=== PATIENT | male | born 1950 | race Caucasian/White ===

== ENCOUNTER 2018-08-31 15:15 | Inpatient (IN) ==
[2018-08-31] MEDS ORDERED: ACETAMINOPHEN 325 MG TABLET PO PRN (15:19)
[2018-08-31] MEDS ORDERED: ONDANSETRON 4 MG/2 ML VIAL IV PRN (15:19)
[2018-08-31] MEDS ORDERED: DOCUSATE SODIUM 100 MG CAPSULE PO PRN (15:19)
[2018-08-31] MEDS ORDERED: methylPREDNISolone SOD SUC 125 MG/2 ML VIAL IV ONE (16:00)
[2018-08-31] MEDS: cefTRIAXone 1,000 MG in SYRINGE 1 EACH IV SCH (17:47)
[2018-08-31] MEDS: SODIUM CHLORIDE 0.9% 1,000 ML IV SCH (17:47)
[2018-08-31 18:50] LABS: Basophils # 0.1 10*3/uL (0.0-0.2); Basophils % 0.6 % (0.0-0.8); Eosinophils # 0.3 10*3/uL (0.0-0.87); Eosinophils % 3.8 % (0.00-10.9); Hemoglobin 18.2 GM/DL (14.0-18.0); Immature Granulocytes % 0.4 %; Immature Granulocytes Absolute 0.03 #; Lymphocytes # 0.4 10*3/uL (1.4-4.0); Mean Corpuscular HGB Conc 33.1 GM/DL (32-36); Mean Corpuscular Hemoglobin 32 PG (27-34); Mean Corpuscular Volume 95.8 FL (87-102); Mean Platelet Volume 10.4 FL (9.6-12.0); Monocytes # 0.3 10*3/uL (0.11-0.8); Monocytes % 3.5 % (1.7-12.7); Neutrophils # 7.2 10*3/uL (1.4-7.4); Neutrophils % 86.7 % (38.7-73.9); Platelet Count 306 T/CUMM (130-400); Red Blood Count 5.74 MC/CUMM (3.8-5.5); White Blood Count 8.2 T/CUMM (4-12)
[2018-08-31 18:59] LABS: Albumin 3.5 G/DL (3.4-5.0); Bilirubin,Total 1.1 MG/DL (0.2-1.0); Calcium 9.1 MG/DL (8.5-10.1); Osmolality,Calculated 265.2 MOS/KG (273-304); Potassium 4.8 MMOL/L (3.5-5.1); Total Protein 7.9 G/DL (6.4-8.3)
[2018-08-31] MEDS: ALBUTEROL/IPRATROPIUM 3 ML NEB RESP TX SCH ×2 (20:10→22:50)
[2018-08-31] MEDS ORDERED: ENOXAPARIN 30 MG/0.3 ML SYRINGE SUBCUT SCH (21:00)
[2018-08-31] MEDS: TEMAZEPAM 15 MG CAPSULE PO SCH (21:09)
[2018-08-31] MEDS: guaiFENesin/DM ER 600-30 MG TABLET PO SCH (21:09)
[2018-09-01] MEDS: methylPREDNISolone SOD SUC 125 MG/2 ML VIAL IV SCH ×2 (00:17→09:30)
[2018-09-01] MEDS: ALBUTEROL/IPRATROPIUM 3 ML NEB RESP TX SCH ×6 (03:00→23:00)
[2018-09-01] MEDS: PANTOPRAZOLE 40 MG TABLET PO SCH (09:13)
[2018-09-01] MEDS: MULTIVITAMIN (CENTRUM) TABLET PO SCH (09:13)
[2018-09-01] MEDS: ASPIRIN EC 81 MG TABLET PO SCH (09:13)
[2018-09-01] MEDS: guaiFENesin/DM ER 600-30 MG TABLET PO SCH ×2 (09:13→21:38)
[2018-09-01] MEDS: methylPREDNISolone SOD SUC 40 MG/1 ML VIAL IV SCH ×2 (09:16→21:36)
[2018-09-01] MEDS: SODIUM CHLORIDE 0.9% 1,000 ML IV SCH (13:55)
[2018-09-01] MEDS: cefTRIAXone 1,000 MG in SYRINGE 1 EACH IV SCH (15:32)
[2018-09-01] MEDS: ENOXAPARIN 40 MG/0.4 ML SYRINGE SUBCUT SCH (21:37)
[2018-09-01] MEDS: TEMAZEPAM 15 MG CAPSULE PO SCH (21:38)
[2018-09-02] MEDS: ALBUTEROL/IPRATROPIUM 3 ML NEB RESP TX SCH ×4 (03:00→18:42)
[2018-09-02] MEDS: SODIUM CHLORIDE 0.9% 1,000 ML IV SCH (06:08)
[2018-09-02] MEDS: ASPIRIN EC 81 MG TABLET PO SCH (09:08)
[2018-09-02] MEDS: MULTIVITAMIN (CENTRUM) TABLET PO SCH (09:08)
[2018-09-02] MEDS: PANTOPRAZOLE 40 MG TABLET PO SCH (09:08)
[2018-09-02] MEDS: guaiFENesin/DM ER 600-30 MG TABLET PO SCH ×2 (09:08→20:32)
[2018-09-02] MEDS: methylPREDNISolone SOD SUC 40 MG/1 ML VIAL IV SCH ×2 (09:09→20:32)
[2018-09-02] MEDS: ROFLUMILAST 500 MCG TABLET PO SCH (12:05)
[2018-09-02] MEDS: cefTRIAXone 1,000 MG in SYRINGE 1 EACH IV SCH (15:51)
[2018-09-02] MEDS: TEMAZEPAM 15 MG CAPSULE PO SCH (20:31)
[2018-09-02] MEDS: ENOXAPARIN 40 MG/0.4 ML SYRINGE SUBCUT SCH (20:32)
[2018-09-02] MEDS: METOPROLOL TARTRATE 25 MG TABLET PO SCH (20:35)
[2018-09-03] MEDS: ALBUTEROL/IPRATROPIUM 3 ML NEB RESP TX SCH ×4 (00:29→19:40)
[2018-09-03] MEDS ORDERED: FUROSEMIDE 20 MG/2 ML VIAL IV ONE (08:56)
[2018-09-03] MEDS: methylPREDNISolone SOD SUC 40 MG/1 ML VIAL IV SCH ×3 (09:50→18:31)
[2018-09-03] MEDS: guaiFENesin/DM ER 600-30 MG TABLET PO SCH ×2 (09:51→21:18)
[2018-09-03] MEDS: ASPIRIN EC 81 MG TABLET PO SCH (09:51)
[2018-09-03] MEDS: PSEUDOEPHEDRINE 30 MG TABLET PO SCH ×2 (09:51→21:18)
[2018-09-03] MEDS: ROFLUMILAST 500 MCG TABLET PO SCH (09:51)
[2018-09-03] MEDS: MULTIVITAMIN (CENTRUM) TABLET PO SCH (09:51)
[2018-09-03] MEDS: PANTOPRAZOLE 40 MG TABLET PO SCH (09:51)
[2018-09-03] MEDS: METOPROLOL TARTRATE 25 MG TABLET PO SCH ×2 (09:52→21:18)
[2018-09-03] MEDS: OXYMETAZOLINE 0.05% NASAL SPRAY 15 ML BOTTLE BOTH NARES SCH ×2 (15:37→21:20)
[2018-09-03] MEDS: cefTRIAXone 1,000 MG in SYRINGE 1 EACH IV SCH (15:37)
[2018-09-03] MEDS: AZELASTINE NASAL 137 MCG/SPRAY 30 ML BOTTLE BOTH NARES SCH ×2 (15:37→21:20)
[2018-09-03] MEDS: TEMAZEPAM 15 MG CAPSULE PO SCH (21:18)
[2018-09-03] MEDS: ENOXAPARIN 40 MG/0.4 ML SYRINGE SUBCUT SCH (21:18)
[2018-09-04] MEDS: methylPREDNISolone SOD SUC 40 MG/1 ML VIAL IV SCH ×3 (00:30→13:57)
[2018-09-04] MEDS: ALBUTEROL/IPRATROPIUM 3 ML NEB RESP TX SCH ×3 (01:29→12:09)
[2018-09-04] MEDS: SODIUM CHLORIDE 0.9% 1,000 ML IV SCH ×2 (02:02)
[2018-09-04 06:44] LABS: Basophils % 0.1 % (0.0-0.8); Hematocrit 51.3 VOL% (42.0-52.0); Immature Granulocytes % 0.3 %; Immature Granulocytes Absolute 0.03 #; Lymphocytes % 11.2 % (21.2-54.2); Mean Corpuscular HGB Conc 31.6 GM/DL (32-36); Mean Corpuscular Hemoglobin 31 PG (27-34); Mean Corpuscular Volume 98.1 FL (87-102); Mean Platelet Volume 10.3 FL (9.6-12.0); Monocytes # 0.7 10*3/uL (0.11-0.8); Monocytes % 7.2 % (1.7-12.7); Neutrophils # 7.4 10*3/uL (1.4-7.4); Neutrophils % 81.2 % (38.7-73.9); Platelet Count 250 T/CUMM (130-400); Red Blood Count 5.23 MC/CUMM (3.8-5.5); Red Cell Distribution Width 12.2 % (9.3-17.3); White Blood Count 9.1 T/CUMM (4-12)
[2018-09-04 06:47] LABS: Hemoglobin 16.2 GM/DL (14.0-18.0)
[2018-09-04 06:48] LABS: Calcium 8.3 MG/DL (8.5-10.1); Osmolality,Calculated 274.8 MOS/KG (273-304); Potassium 4.1 MMOL/L (3.5-5.1)
[2018-09-04] MEDS: MULTIVITAMIN (CENTRUM) TABLET PO SCH (08:54)
[2018-09-04] MEDS: ASPIRIN EC 81 MG TABLET PO SCH (08:54)
[2018-09-04] MEDS: PSEUDOEPHEDRINE 30 MG TABLET PO SCH (08:54)
[2018-09-04] MEDS: PANTOPRAZOLE 40 MG TABLET PO SCH (08:54)
[2018-09-04] MEDS: ROFLUMILAST 500 MCG TABLET PO SCH (08:54)
[2018-09-04] MEDS: METOPROLOL TARTRATE 25 MG TABLET PO SCH (08:54)
[2018-09-04] MEDS: OXYMETAZOLINE 0.05% NASAL SPRAY 15 ML BOTTLE BOTH NARES SCH (08:55)
[2018-09-04] MEDS: guaiFENesin/DM ER 600-30 MG TABLET PO SCH (08:55)
[2018-09-04] MEDS: AZELASTINE NASAL 137 MCG/SPRAY 30 ML BOTTLE BOTH NARES SCH (08:55)
[2018-09-04] MEDS: cefTRIAXone 1,000 MG in SYRINGE 1 EACH IV SCH (15:33)
[2018-09-04 16:28] VITALS: BP 118/74
== END 2018-09-04 17:55 | disposition home or self-care (01) | DRG 192 ==
LOC: N.5E
PROVIDERS: ADMIT Family Medicine; ATTEND Family Medicine